=== PATIENT | female | born 1950 | race Caucasian/White ===

== ENCOUNTER 2021-02-24 19:31 | Inpatient (IN) | payer OTHER, MEDICARE ==
[~2021-02-24] VITALS: Ht 157.5 cm; Wt 72.0 kg
[~2021-02-24 19:31] MED LIST: AMBIEN 10MG10 MG PO; FLAGYL 250250 MG/TAB PO; FLEXERIL 1010 MG/TAB PO; IBU600 MG PO; LEVAQUIN 5500 MG/TA1 PO; NEXIUM 20MG20 MG PO; NORCO 325 MG-51 TAB PO; Norco; PRINIVIL40 MG PO
[2021-02-24 20:19] VITALS: BP 103/61; PULSE 102; TEMP 97.8
[2021-02-24] MEDS ORDERED: TYLENOL 325MG325 MG PO (20:57)
[2021-02-24] MEDS ORDERED: LIPITOR 80MG80 MG PO (20:58)
[2021-02-24] MEDS ORDERED: HYGROTON 2525 MG/TAB (20:59)
[2021-02-24] MEDS ORDERED: HYGROTON 2525 MG/TAB PO (21:00)
[2021-02-24] MEDS ORDERED: VOLTAREN GEL 1%1 TU TP (21:01)
[2021-02-24] MEDS ORDERED: NEURONTIN300 MG/CAP PO (21:02)
[2021-02-24] MEDS ORDERED: LEVOXYL0.112 MG PO (21:04)
[2021-02-24] MEDS ORDERED: LIDODERM 5% PATC1 EA TP (21:05)
[2021-02-24] MEDS ORDERED: VITAMIN D GUMMIES PO (21:08)
[2021-02-24 23:02] LABS: BASO % 0.3 % (0.0-2.0); EOS # 0.1 (0.0-0.7); EOS % 0.9 % (0-4.0); GRAN # 7.8 (1.4-6.5); GRAN % 75.2 % (42.2-75.2); LYMPH # 1.8 (1.2-3.4); MEAN CELL VOLUME 97 fl (80.0-100.0); MEAN CORPUSCULAR HEMOGLOBIN 34 pg (27.0-31.0); MEAN CORPUSCULAR HGB CONC 35 g/dl (33.0-37.0); MEAN PLATELET VOLUME 9.6 fl (7.4-10.4); MONO # 0.7 (0.1-0.6); MONO % 6.3 % (1.7-9.3); PLATELET COUNT 227 K/mm3 (130-400); RED BLOOD COUNT 3.56 M/mm3 (4.10-5.30); REDCELL DISTRIBUTION WIDTH-CV 14.8 % (11.5-14.5)
[2021-02-24 23:03] LABS: HEMATOCRIT 34.5 % (37.0-47.0)
[2021-02-24 23:15] LABS: CALCIUM 7.3 mg/dL (8.4-10.2); CREATININE, serum 2.1 (0.52-1.25)
[2021-02-24 23:18] LABS: POTASSIUM 2.2 mmol/L (3.4-5.0)
[2021-02-24 23:19] LABS: MAGNESIUM 0.7 mg/dL (1.6-2.3)
[2021-02-25] VITALS (7 sets, daily range): BP systolic 93–107; BP diastolic 51–65; PULSE 87–106; TEMP 97.5–98
[2021-02-25 05:53] LABS: CLOSTRIDIUM DIFF A/B NEG; CLOSTRIDIUM DIFF A/B INTERP No C.diff present
[2021-02-25 06:34] LABS: PH 5 (5-8); SQUAMOUS EPITHELIAL 0-2 /hpf; URINE APPEARANCE Clear; URINE BACTERIA Rare /hpf; URINE BILIRUBIN Negative (NEGATIVE); URINE BLOOD Negative (NEGATIVE); URINE COLOR Straw; URINE GLUCOSE Negative (NEGATIVE); URINE KETONE Negative (NEGATIVE); URINE LEUKOCYTE ESTERASE 2+ (NEGATIVE); URINE NITRATE Negative (NEGATIVE); URINE PROTEIN(semi-quant) Negative (NEGATIVE); URINE RBC 0-2 /hpf; URINE UROBILINOGEN Negative (NEGATIVE)
[2021-02-25 06:47] LABS: COLLECTION METHOD CLEAN CATCH
[2021-02-25 06:51] LABS: BASO % 0.3 % (0.0-2.0); EOS # 0.1 (0.0-0.7); EOS % 1.5 % (0-4.0); HEMOGLOBIN 11.1 g/dl (12.5-16.0); LYMPH % 26.3 % (20.0-51.0); MEAN CELL VOLUME 98 fl (80.0-100.0); MEAN CORPUSCULAR HEMOGLOBIN 34 pg (27.0-31.0); MEAN CORPUSCULAR HGB CONC 34 g/dl (33.0-37.0); MEAN PLATELET VOLUME 9.8 fl (7.4-10.4); MONO # 0.5 (0.1-0.6); MONO % 6.5 % (1.7-9.3); PLATELET COUNT 231 K/mm3 (130-400); REDCELL DISTRIBUTION WIDTH-CV 15.1 % (11.5-14.5)
[2021-02-25 06:56] LABS: HEMATOCRIT 32.3 % (37.0-47.0)
[2021-02-25 08:23] LABS: CALCIUM 7.5 mg/dL (8.4-10.2); CREATININE, serum 1.61 (0.52-1.25); MAGNESIUM 2.2 mg/dL (1.6-2.3); POTASSIUM 3.2 mmol/L (3.4-5.0)
[2021-02-26 04:06] VITALS: BP 111/70; PULSE 97; TEMP 98.1
[2021-02-26 06:45] LABS: BASO % 0.3 % (0.0-2.0); EOS # 0.1 (0.0-0.7); EOS % 2.1 % (0-4.0); GRAN % 69.6 % (42.2-75.2); HEMOGLOBIN 10.6 g/dl (12.5-16.0); LYMPH # 1.2 (1.2-3.4); LYMPH % 21.3 % (20.0-51.0); MEAN CELL VOLUME 98 fl (80.0-100.0); MEAN CORPUSCULAR HEMOGLOBIN 34 pg (27.0-31.0); MEAN CORPUSCULAR HGB CONC 34 g/dl (33.0-37.0); MONO # 0.4 (0.1-0.6); MONO % 6.4 % (1.7-9.3); PLATELET COUNT 215 K/mm3 (130-400); RED BLOOD COUNT 3.15 M/mm3 (4.10-5.30); REDCELL DISTRIBUTION WIDTH-CV 15.4 % (11.5-14.5)
[2021-02-26 06:46] LABS: HEMATOCRIT 30.9 % (37.0-47.0)
[2021-02-26 07:01] LABS: CALCIUM 8.4 mg/dL (8.4-10.2); CREATININE, serum 1.1 (0.52-1.25); MAGNESIUM 1.7 mg/dL (1.6-2.3); POTASSIUM 3.2 mmol/L (3.4-5.0)
[2021-02-26 07:38] VITALS: BP 109/59; PULSE 106; TEMP 98
[2021-02-26] MEDS ORDERED: K-DUR20 MEQ PO (09:36)
[2021-02-26 11:23] VITALS: BP 106/60; PULSE 95; TEMP 97.5
== END 2021-02-26 12:27 | disposition home or self-care (01) | DRG 872 ==
LOC: MEDICAL 19:31 → SURG 20:09
PROVIDERS: Physician Assistant; Student in an Organized Health Care Education/Training Program; ADMIT Student in an Organized Health Care Education/Training Program
DX: A41.9 Sepsis, unspecified organism (principal); N17.9 Acute kidney failure, unspecified; N39.0 Urinary tract infection, site not specified; G89.29 Other chronic pain; E03.9 Hypothyroidism, unspecified; E78.5 Hyperlipidemia, unspecified; K21.9 Gastro-esophageal reflux disease without esophagitis; F32.9 Major depressive disorder, single episode, unspecified; I12.9 Hypertensive chronic kidney disease with stage 1 through stage 4 chronic kidney disease, or unspecified chronic kidney disease; N18.9 Chronic kidney disease, unspecified; K52.9 Noninfective gastroenteritis and colitis, unspecified; E87.6 Hypokalemia; E83.42 Hypomagnesemia; I45.81 Long QT syndrome; I95.9 Hypotension, unspecified; E86.0 Dehydration; Z87.891 Personal history of nicotine dependence
CPT/HCPCS: 99223-AI; 99232-AI; 99239; J1644; J1956; J3475; J3480; J7120